=== PATIENT | female | born 1980 | race Caucasian/White ===

== ENCOUNTER 2021-06-02 20:02 | Emergency (ER) | payer BC ==
[2021-06-02] MEDS ORDERED: NAPROXEN500 MG PO (22:00)
== END 2021-06-02 22:10 | disposition home or self-care (01) ==
LOC: ER1 20:02
DX: S90.31XA Contusion of right foot, initial encounter (principal); Z90.89 Acquired absence of other organs; W20.8XXA Other cause of strike by thrown, projected or falling object, initial encounter
CPT/HCPCS: 73630; 99283

== ENCOUNTER 2022-01-22 14:08 | Emergency (ER) | payer BC ==
[~2022-01-22 14:08] MED LIST: NAPROXEN500 MG PO
[2022-01-22 15:09] LABS: HEMOGLOBIN 13.8 gm/dl (12.3-15.3); RED BLOOD COUNT 4.61 M/UL (4.00-5.10); WHITE BLOOD COUNT 6.8 K/UL (4.5-11.0)
[2022-01-22 15:33] LABS: BUN/CREATININE RATIO 12 (0-10)
[2022-01-24 14:13] LABS: LYME IGG/IGM AB <0.91 ISR (0.00-0.90)
== END 2022-01-22 17:09 | disposition home or self-care (01) ==
LOC: ER1 14:08
PROVIDERS: Emergency Medicine
DX: S70.362A Insect bite (nonvenomous), left thigh, initial encounter (principal); R51.9 Headache, unspecified; Z20.822 Contact with and (suspected) exposure to COVID-19; I10 Essential (primary) hypertension; W57.XXXA Bitten or stung by nonvenomous insect and other nonvenomous arthropods, initial encounter
CPT/HCPCS: 0240U; 70450; 71045; 80053; 84703; 85025; 85610; 85730; 86140; 86618; 87040; 99284

== ENCOUNTER 2022-01-23 13:06 | Emergency (ER) | payer BC ==
[2022-01-23 15:13] LABS: HEMOGLOBIN 14.1 gm/dl (12.3-15.3); RED BLOOD COUNT 4.78 M/UL (4.00-5.10); WHITE BLOOD COUNT 6.9 K/UL (4.5-11.0)
[2022-01-23 15:35] LABS: BUN/CREATININE RATIO 12 (0-10)
[2022-01-23 17:06] LABS: RBC (AUTOMATED) 100 10^6 (0); WBC (AUTOMATED 6 10^3 (0-5)
[2022-01-23 17:07] LABS: WBC (AUTOMATED 5 10^3 (0-5)
[2022-01-23 17:12] LABS: GLUCOSE,CSF 49 mg/dL (50-80); TOTAL PROTEIN,CSF 43 mg/dL (20-45)
[2022-01-23 17:28] LABS: CRYPTOCOCCUS NEOFORMANS/GATTII Not Detected (Negative); CYTOMEGALOVIRUS Not Detected (Negative); ENTEROVIRUS Not Detected (Negative); ESCHERICHIA COLI K1 Not Detected (Negative); HAEMOPHILUS INFLUENZAE Not Detected (Negative); HERPES SIMPLEX VIRUS 1 Not Detected (Negative); HERPES SIMPLEX VIRUS 2 Not Detected (Negative); HUMAN HERPESVIRUS 6 Not Detected (Negative); HUMAN PARECHOVIRUS Not Detected (Negative); LISTERIA MONOCYTOGENES Not Detected (Negative); NEISERRIA MENINGITIDIS Not Detected (Negative); STREPTOCOCCUS AGALACTIAE Not Detected (Negative); STREPTOCOCCUS PNEUMONIAE Not Detected (Negative); VARICELLA ZOSTER VIRUS Not Detected (Negative)
== END 2022-01-23 19:28 | disposition home or self-care (01) ==
LOC: ER1 13:06
PROVIDERS: Emergency Medicine
DX: R51.9 Headache, unspecified (principal); I10 Essential (primary) hypertension
CPT/HCPCS: 62270; 80053; 82945; 84157; 85025; 85652; 87070; 87205; 87210; 87483; 89051; 99284

== ENCOUNTER → 2022-02-12 | Outpatient (CLI) | payer BC | LOC: EMI 14:43 | DX: G43.009 Migraine without aura, not intractable, without status migrainosus (principal); T14.8XXA Other injury of unspecified body region, initial encounter; W57.XXXA Bitten or stung by nonvenomous insect and other nonvenomous arthropods, initial encounter; J32.4 Chronic pansinusitis; R93.89 Abnormal findings on diagnostic imaging of other specified body structures | CPT/HCPCS: 70553; A9577 ==